=== PATIENT | female | born 1960 | race African-American/Black ===

== ENCOUNTER 2020-08-04 01:40 | Inpatient (IN) | payer BC ==
[~2020-08-04] VITALS: Ht 154.9 cm; Wt 54.4 kg
--- NOTE | 2020-08-04 01:50 | NUR ---
BIBSELF FROM HOME AMBULATORY WITH C/C OF CHEST PAIN SINCE WEDNESDAY, AA/O X4, BREATHING EVEN AND UNLABORED, HOOKED TO MONITOR AND PULSE OX CURRENT CHEST PAIN 4/10 TIGHTNESS ON CHEST,WILL CONT TO MONITOR
--- NOTE | 2020-08-04 02:09 | NUR ---
LAB AT BEDSIDE, BLOOD DRAW DONE
[2020-08-04 02:14] LABS: BASOPHILS % (AUTO) 0.4 % (0.0-2.0); EOSINOPHILS % (AUTO) 2.2 % (0.0-6.0); HEMATOCRIT 41 % (33-45); HEMOGLOBIN 13.5 g/dL (11.5-14.8); LYMPHOCYTES # (AUTO) 1.3 /CMM (0.8-4.8); LYMPHOCYTES % (AUTO) 19.8 % (20.0-44.0); MEAN CORPUSCULAR HGB CONC 33 g/dl (31.0-36.0); MEAN CORPUSCULAR VOLUME 87 fL (82-100); MONOCYTES # (AUTO) 0.5 /CMM (0.1-1.30); MONOCYTES % (AUTO) 7.2 % (2.0-12.0); NEUTROPHILS # (AUTO) 4.8 /CMM (1.8-8.9); NEUTROPHILS % (AUTO) 70.4 % (43.0-81.0); PLATELET COUNT (AUTO) 194 /CMM (150-450); RED BLOOD CELL COUNT(AUTO) 4.67 MIL/uL (4.0-5.2); WHITE BLOOD COUNT (AUTO) 6.8 K/uL (4.3-11.0)
[2020-08-04 02:25] LABS: CALCIUM, SERUM 9.8 mg/dL (8.5-10.1); CREATININE 0.9 mg/dL (0.6-1.3); POTASSIUM 3.7 mmol/L (3.5-5.1)
[2020-08-04] MEDS ORDERED: NITROGLYCERIN 0.4 MG/TAB BOTTLE ONE (02:49)
[2020-08-04] MEDS ORDERED: NITROGLYCERIN 0.4 MG/TAB BOTTLE SL ONE (03:00)
--- NOTE | 2020-08-04 03:04 | NUR ---
CALLED NURSING SUP FOR TELE BED
--- NOTE | 2020-08-04 03:16 | NUR ---
PAGED EMMY; KIM LAURENT
--- NOTE | 2020-08-04 03:22 | NUR ---
COVID TEST AND MRSA TEST DONE, SPECIMEN SEND TO LAB
--- NOTE | 2020-08-04 03:22 | NUR ---
KIM ON THE PHONE WITH DR. VERDIN
[2020-08-04] MEDS ORDERED: ASPIRIN 325 MG TABLET ONE (03:24)
[2020-08-04] MEDS ORDERED: ACETAMINOPHEN 325 MG TABLET PO PRN (03:30)
[2020-08-04] MEDS ORDERED: DOCUSATE SODIUM 100 MG CAPSULE PO PRN (03:30)
[2020-08-04] MEDS ORDERED: NITROGLYCERIN 0.4 MG/TAB BOTTLE SL PRN (03:30)
[2020-08-04] MEDS ORDERED: ONDANSETRON HCL/PF 4 MG/2 ML VIAL IVP PRN (03:30)
[2020-08-04] MEDS ORDERED: MAG HYDROX/AL HYDROX/SIMETH 30 ML UDC PO PRN (03:30)
[2020-08-04] MEDS ORDERED: ASPIRIN 325 MG TABLET PO ONE (03:30)
[2020-08-04] MEDS ORDERED: MORPHINE SULFATE INJ 2 MG/ML DISP.SYRIN IV PRN (03:30)
[2020-08-04] MEDS ORDERED: HYDR25TA4 PO (04:20)
[2020-08-04] MEDS ORDERED: ATOR10TA PO (04:20)
--- NOTE | 2020-08-04 04:20 | NUR ---
REPORT GIVEN TO FRANCESCO SCHULZ FOR [facility]
[2020-08-04 04:25] VITALS: BP 130/75
--- NOTE | 2020-08-04 04:25 | NUR ---
IMPORT EXPORT AGENTINDUSTRIAL MAINTENANCE REPAIRER NOTE RECEIVED PATIENT VIA GURNEY. AMBULATED TO BED WITH STEADY GAIT. TOLERATING ROOM AIR. RESPIRATIONS ARE EVEN AND UNLABORED. NO S/S SO NOTED. NO C/O CHEST PAIN AT THIS TIME. EXTERAL TELE MONITOR READS SINUS RHYTHM 80S AT RST, INCREASE TO 90S AND 110S WHEN MOVING WITH OCCASIONAL PVCS. IN NO APPARENT DISTRESS. IV ACCESS IN LAC#20 PATENT AND SALINE LOCKED. INITIAL PHYSICAL ASSESSMENT CONDUCTED AT THIS TIME. SKIN ASSESSMENT COMPLETED, SKIN INTACT. DIRECTOR ORACLE RETAIL OBTAINED VITALS AND COMPETED BELONGING LIST. BED IS LOW AND LOCKED, HOB ELEVATED IN SEMI FOWLERS, SIDE RAILS UP X2, CALL LIGHT WITHIN REACH, EXPLAINED USE. WILL CONTINUE TO MONITOR THROUGHOUT SHIFT.
[2020-08-04 04:45] VITALS: BP 130/75
[2020-08-04 06:43] LABS: BASOPHILS % (AUTO) 0.3 % (0.0-2.0); EOSINOPHILS % (AUTO) 1.3 % (0.0-6.0); HEMATOCRIT 38 % (33-45); HEMOGLOBIN 12.9 g/dL (11.5-14.8); LYMPHOCYTES # (AUTO) 0.8 /CMM (0.8-4.8); LYMPHOCYTES % (AUTO) 12.3 % (20.0-44.0); MEAN CORPUSCULAR HGB CONC 34 g/dl (31.0-36.0); MEAN CORPUSCULAR VOLUME 86 fL (82-100); MONOCYTES # (AUTO) 0.5 /CMM (0.1-1.30); MONOCYTES % (AUTO) 7.4 % (2.0-12.0); NEUTROPHILS # (AUTO) 5.1 /CMM (1.8-8.9); NEUTROPHILS % (AUTO) 78.7 % (43.0-81.0); PLATELET COUNT (AUTO) 185 /CMM (150-450); RED BLOOD CELL COUNT(AUTO) 4.41 MIL/uL (4.0-5.2); WHITE BLOOD COUNT (AUTO) 6.5 K/uL (4.3-11.0)
--- NOTE | 2020-08-04 06:52 | NUR ---
MAIL ROOM CLERK CLOSING NOTE PATIENT RESTING IN BED. TOLERATING ROOM AIR. NO RESP DISTRESS. NO CHEST PAIN NOTED. TELE MONITOR READS SINUS RHYTHM WITH PVCS HR 90S. NO DISTRESS. IV ACCESS IN LAC#20. BED IS LOW AND LOCKED, HOB ELEVATED IN SEMI FOWLERS, SIDE RAILS UP X2, CALL LIGHT WITHIN REACH, WILL ENDORSE TO ONCOMING SHIFT.
[2020-08-04 07:25] LABS: BILIRUBIN,TOTAL 1.1 mg/dL (0.2-1.0); CALCIUM, SERUM 9.5 mg/dL (8.5-10.1); CREATININE 0.9 mg/dL (0.6-1.3); PHOSPHORUS 3.5 mg/dL (2.5-4.9); POTASSIUM 3.7 mmol/L (3.5-5.1); TOTAL PROTEIN, SERUM 7.2 g/dL (6.4-8.2)
[2020-08-04 07:39] LABS: THYROID STIMULATING HORMONE 0.497 uIU/mL (0.358-3.74)
[2020-08-04 08:00] VITALS: BP 136/72
[2020-08-04] MEDS: ASPIRIN 81 MG TAB.CHEW PO SCH (08:36)
[2020-08-04] MEDS: METOPROLOL TARTRATE 50 MG TABLET PO SCH ×2 (08:37→20:27)
[2020-08-04] MEDS: HYDROCHLOROTHIAZIDE 25 MG TABLET PO SCH (08:38)
[2020-08-04] MEDS: ENOXAPARIN SODIUM 60 MG/0.6 ML DISP.SYRIN SQ SCH (08:39)
[2020-08-04 12:00] VITALS: BP 126/75
[2020-08-04 16:00] VITALS: BP 116/69
[2020-08-04] MEDS ORDERED: ATORVASTATIN 10 MG TABLET PO SCH (18:00)
--- NOTE | 2020-08-04 19:10 | NUR ---
RN OPENING NOTE RECEIVED PATIENT IN BED RESTING ALERT ORIENTED X4 VERBALLY RESPONSIVE,ABLE TO MAKE NEEDS KNOWN,ON ROOM AIR O2:97% IV SITE IS ON LEFT AC INTACT PATENT,AMBULATORY CONTINENT TO BOWEL/BLADDER,BED IN LOW POSITION AND LOCKED,CALL LIGHT WITHIN REACH,CONTINUE TO MONITOR.
[2020-08-04 20:00] VITALS: BP 129/72
[2020-08-04] MEDS ORDERED: SIMVASTATIN 20 MG TABLET PO SCH (22:00)
[2020-08-05] VITALS: BP 114/79
[2020-08-05 04:00] VITALS: BP 125/69
--- NOTE | 2020-08-05 06:27 | NUR ---
RN CLOSING NOTE PATIENT REMAINS ON ALERT ORIENTED X4 VERBALLY RESPONSIVE NO SOB NOT ACUTE DISTRESS NOTED ON ROOM AIR:98%,SHE HAS PROCEDURE THIS MORNING CTA,CONSENT SIGNED IN CHART,ALL DUE MEDS GIVEN MD ORDERED KEEP CLEAN AND DRY ALL THE TIME,KEEP COMFORTABLE,ENDORSE NEXT COMING SHIFT FOR CONTINUATION OF CARE.
--- NOTE | 2020-08-05 07:25 | NUR ---
TIE LOADER OPENING NOTE RECEIVED REPORT FROM PM NURSE. PATIENT IN BED RESTING ALERT ORIENTED . VERBALLY RESPONSIVE,ABLE TO MAKE NEEDS KNOWN,ON ROOM AIR.ON TELE MONITOR SR WITH HR 67. IV SITE IS ON LEFT AC INTACT PATENT,AMBULATORY CONTINENT TO BOWEL/BLADDER,BED IN LOW POSITION AND LOCKED,CALL LIGHT WITHIN REACH.AWAITING CTA.WILL CONTINUE TO MONITOR.
[2020-08-05] MEDS ORDERED: CT SWABBABLE VALVE TRANS SET 1 EA INFUS.SET MC ONE (07:42)
[2020-08-05] MEDS ORDERED: IOHEXOL-350 100 ML VIAL IV ONE (07:42)
[2020-08-05] MEDS ORDERED: METOPROLOL TARTRATE INJ 5 MG/5 ML AMPUL ONE ×3 (07:42→08:39)
[2020-08-05] MEDS ORDERED: IV NS 0.9% 250 ML IV ONE (07:42)
[2020-08-05] MEDS: METOPROLOL TARTRATE 50 MG TABLET PO SCH (07:46)
--- NOTE | 2020-08-05 07:53 | NUR ---
RN NOTE PATIENT IS TRANSFERRED OUT FROM UNIT FOR CT ANGIO IN STABLE CONDITION.
[2020-08-05 08:00] VITALS: BP 124/69
--- NOTE | 2020-08-05 09:16 | NUR ---
WEATHERSTRIP MACHINE OPERATOR NOTE PATIENT BACK FROM CTA.STABLE.NOT IN ANY DISTRESS OR PAIN.WILL CONTINUE TO MONITOR.
[2020-08-05] MEDS: ENOXAPARIN SODIUM 60 MG/0.6 ML DISP.SYRIN SQ SCH (09:36)
[2020-08-05 09:37] VITALS: BP 124/69
[2020-08-05] MEDS: HYDROCHLOROTHIAZIDE 25 MG TABLET PO SCH (09:37)
[2020-08-05] MEDS: ASPIRIN 81 MG TAB.CHEW PO SCH (09:40)
--- NOTE | 2020-08-05 10:00 | NUR ---
RN NOTES PT STABLE S/P CTA , NO ACUTE EVENTS NOTED, SR 85 ON TELE MONITOR , VSS AFEBRILE , AOX4 , 40MG OF METOPROLOL GIVEN , 0.4 NITROL SL GIVEN . REPORT GIVEN TO LEVON FOR CONTINUITY OF CARE
[2020-08-05] MEDS ORDERED: METO50TA16 PO (11:02)
[2020-08-05] MEDS ORDERED: PANT40TA2 PO (11:03)
--- NOTE | 2020-08-05 11:15 | NUR ---
RN NOTE SEEN BY ANASTASIIA HESS UPDATED ABOUT PATIENT CONDITION.GOT NEW ORDER FOR DISCHARGE WITH PRESCRIPTION.PATIENT MADE AWARE.WILL CONTINUE TO MONITOR.
--- NOTE | 2020-08-05 11:52 | NUR ---
PATIENT DISCHARGE NOTE PATIENT D/C [facility] WITH PARTNER CAROL IN STABLE CONDITION.NO SOB NO DISTRESS NOTED.VITAL SIGNS STABLE.DISCHARGE INSTRUCTIONS GIVEN.PATIENT VERBALIZED UNDERSTANDING.PRESCRIPTION GIVEN TO THE PATIENT.SHE TOLD SHE WILL GO TO THE PHARMACY [facility] AND ELECTRICITY TRADER FROM THERE.PATIENT IS AXOX4.TOOK ALL BELONGINGS.TEACHING REGARDING NEW PRESCRIPTION GIVEN.PATIENT VERBALIZED UNDERSTANDING .BP MEDICATION MADE AWARE TO CHECK BP AND HR BEFORE TAKE MEDICATION WITH PARAMETERS.SHANNAN LEVINE ESCORTED PATIENT OUT TO THE LOBBY FOR DISCHARGE WITH PATIENT PARTNER CAROL.IV REMOVED DRESSING APPLIED.PATIENT WAS SATISFIED ABOUT CARE PROVIDED.
== END 2020-08-05 11:45 | disposition home or self-care (01) | DRG 392 ==
LOC: ER 01:47 → TELE1 04:13
PROVIDERS: ADMIT Nurse Practitioner Acute Care; ATTEND Nurse Practitioner Acute Care
DX: K21.9 Gastro-esophageal reflux disease without esophagitis (principal); I25.10 Atherosclerotic heart disease of native coronary artery without angina pectoris; I10 Essential (primary) hypertension; E78.5 Hyperlipidemia, unspecified; Z82.49 Family history of ischemic heart disease and other diseases of the circulatory system; Z20.822 Contact with and (suspected) exposure to COVID-19
CPT/HCPCS: 36415; 71045-TC; 75574; 80048-TC; 80053-TC; 80061-TC; 83735-TC; 84100-TC; 84443-TC; 84484-TC; 85025-TC; 87081-TC; 93307-TC; G0378; J1650; J3490; J7050; Q9967